=== PATIENT | female | born 1990 | race Caucasian/White ===

== ENCOUNTER 2020-10-10 13:06 | Emergency (ER) | payer BC ==
[~2020-10-10] VITALS: Ht 160 cm; Wt 46.7 kg
[2020-10-10 13:10] VITALS: BP 121/77
[2020-10-10] MEDS ORDERED: LIDOCAINE 1%-EPI 1:100,000 20 ML VIAL ONE (13:19)
[2020-10-10] MEDS ORDERED: TDAP [DIPH/PERTUSSIS/TET] 0.5 ML VIAL IM ONE ×2 (13:30→13:48)
[2020-10-10] MEDS ORDERED: AMOX/CLAVULANATE 875 MG TABLET ONE (13:49)
[2020-10-10] MEDS ORDERED: AMOX/CLAVULANATE 875 MG TABLET PO ONE (14:00)
[2020-10-10] MEDS ORDERED: AMOX-430 PO (14:00)
== END 2020-10-10 14:07 | disposition home or self-care (01) ==
LOC: ER 13:14
DX: S51.811A Laceration without foreign body of right forearm, initial encounter (principal); W54.0XXA Bitten by dog, initial encounter; Y93.89 Activity, other specified; Y92.89 Other specified places as the place of occurrence of the external cause; Y99.8 Other external cause status
CPT/HCPCS: 12002; 90471; 90715; 99283; J3490